=== PATIENT | male | born 2000 | race African-American/Black ===

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

== ENCOUNTER → 2022-01-25 | Outpatient (CLI) | payer OTHER | LOC: M WUC 15:42 | PROVIDERS: ATTEND Physician Assistant | DX: S93.402A Sprain of unspecified ligament of left ankle, initial encounter (principal); X58.XXXA Exposure to other specified factors, initial encounter; Y92.9 Unspecified place or not applicable; Y93.9 Activity, unspecified; Y99.9 Unspecified external cause status ==

== ENCOUNTER 2024-01-17 19:50 | Emergency (ER) | payer OTHER, SELFPAY ==
[~2024-01-17] VITALS: Ht 172.7 cm; Wt 75.0 kg
[2024-01-17 19:51] VITALS: BP 123/73; TEMP 98.7; O2SAT 100
[2024-01-17] MEDS ORDERED: IBUP-1022 PO (23:58)
== END 2024-01-18 00:45 | disposition home or self-care (01) ==
LOC: M ED 19:50
DX: S06.0X0A Concussion without loss of consciousness, initial encounter (principal); S13.4XXA Sprain of ligaments of cervical spine, initial encounter; Y92.410 Unspecified street and highway as the place of occurrence of the external cause; Y93.9 Activity, unspecified; Y99.9 Unspecified external cause status; V49.50XA Passenger injured in collision with unspecified motor vehicles in traffic accident, initial encounter; Z79.1 Long term (current) use of non-steroidal anti-inflammatories (NSAID)